=== PATIENT | female | born 1985 | race African-American/Black ===

== ENCOUNTER 2023-01-01 16:23 | Inpatient (IN) | payer MEDICAID ==
[~2023-01-01] VITALS: Ht 162.6 cm; Wt 59.9 kg
[2023-01-01 16:23] VITALS: BP_SYST 163
[2023-01-01] MEDS ORDERED: levETIRAcetam 1,000 MG in NS 90 ML IV ONE (16:30)
[2023-01-01 16:46] LABS: BASOPHILS # (AUTO) 0.1 K/uL (0.0-0.2); BASOPHILS % (AUTO) 1.1 % (0.0-2.0); EOSINOPHILS # (AUTO) 0.2 K/uL (0.0-0.4); EOSINOPHILS % (AUTO) 2.8 % (0.0-4.0); HEMATOCRIT 33.2 % (36-48); HEMOGLOBIN 10.7 g/dL (12.0-16.0); LYMPHOCYTES # (AUTO) 2.1 K/uL (1.0-5.5); LYMPHOCYTES % (AUTO) 32.8 % (20.5-51.5); MEAN CORPUSCULAR HEMOGLOBIN 26 pg (27-31); MEAN CORPUSCULAR HGB CONC 32 % (32-36); MEAN CORPUSCULAR VOLUME 80 fL (79.0-98.0); MONOCYTES # (AUTO) 0.4 K/uL (0.0-1.0); MONOCYTES % (AUTO) 6.5 % (1.7-9.3); NEUTROPHILS # (AUTO) 3.6 K/uL (1.8-7.7); NEUTROPHILS % (AUTO) 56.8 % (40.0-70.0); PLATELET COUNT (AUTO) 213 K/uL (130-430); RED BLOOD CELL COUNT(AUTO) 4.16 MIL/uL (4.2-6.2); RED CELL DISTRIBUTION WIDTH 13.8 % (9.0-15.0); WHITE BLOOD COUNT (AUTO) 6.3 K/uL (4.8-10.8)
[2023-01-01 16:55] LABS: CALCIUM 7.9 mg/dL (8.4-11.0); CREATININE 0.64 mg/dL (0.55-1.30)
[2023-01-01 16:59] LABS: ALBUMIN 3.4 g/dL (3.4-4.8); TOTAL BILIRUBIN 0.2 mg/dL (0.0-1.0)
[2023-01-01 17:24] LABS: BARBITURATE, URINE NEGATIVE (NEG <=200); BENZODIAZEPINE, URINE NEGATIVE (NEG <=150); CANNABINOID, URINE NEGATIVE (NEG <=50); COCAINE, URINE NEGATIVE (NEG <=150); METHAMPHETAMINES SCREEN,URINE NEGATIVE (NEG <=500); OPIATE, URINE NEGATIVE (NEG <=100); PHENCYCLIDINE SCREEN,URINE NEGATIVE (NEG <=25); UR TRICYCLIC ANTIDEPRESSANTS NEGATIVE (NEG <=300); URINE AMPHETAMINE NEGATIVE (NEG <=500); URINE METHADONE NEGATIVE (NEG <=200); URINE OXYCODONE SCREEN NEGATIVE (NEG <=100); URINE PROPOXYPHENE SCREEN NEGATIVE (NEG <=300)
[2023-01-01] MEDS ORDERED: LOSA50TA3 PO (18:38)
[2023-01-01] MEDS: D5/0.45 NS 1,000 ML IV SCH (18:46)
[2023-01-01] MEDS ORDERED: LORazepam 2 MG/ML VIAL ONE (19:12)
[2023-01-01] MEDS ORDERED: LORazepam 2 MG/ML VIAL IVP ONE ×2 (19:15→19:45)
[2023-01-01] MEDS ORDERED: levETIRAcetam 3,000 MG in NS 100 ML IV ONE (19:45)
[2023-01-01 21:00] VITALS: BP_SYST 161
[2023-01-01 22:00] VITALS: BP_SYST 179
[2023-01-01 23:00] VITALS: BP_SYST 169
[2023-01-02] VITALS (24 sets, daily range): BP systolic 130–180
[2023-01-02] MEDS ORDERED: levETIRAcetam 500 MG in NS 100 ML IV SCH (04:00)
[2023-01-02 05:25] LABS: BASOPHILS % (AUTO) 0.3 % (0.0-2.0); EOSINOPHILS % (AUTO) 0.2 % (0.0-4.0); HEMATOCRIT 33.7 % (36-48); LYMPHOCYTES % (AUTO) 9.2 % (20.5-51.5); MEAN CORPUSCULAR HEMOGLOBIN 26 pg (27-31); MEAN CORPUSCULAR HGB CONC 33 % (32-36); MEAN CORPUSCULAR VOLUME 78 fL (79.0-98.0); MONOCYTES # (AUTO) 0.6 K/uL (0.0-1.0); MONOCYTES % (AUTO) 5.2 % (1.7-9.3); NEUTROPHILS % (AUTO) 85.1 % (40.0-70.0); PLATELET COUNT (AUTO) 220 K/uL (130-430); RED CELL DISTRIBUTION WIDTH 13.5 % (9.0-15.0); WHITE BLOOD COUNT (AUTO) 10.5 K/uL (4.8-10.8)
[2023-01-02 05:46] LABS: CALCIUM 7.3 mg/dL (8.4-11.0); CREATININE 0.54 mg/dL (0.55-1.30)
[2023-01-02] MEDS: D5/0.45 NS 1,000 ML IV SCH (08:28)
[2023-01-02] MEDS ORDERED: levETIRAcetam 500 MG IV PREMIX 100 ML IV SCH (09:00)
[2023-01-02] MEDS ORDERED: LORazepam 2 MG/ML VIAL IVP PRN (10:15)
[2023-01-02] MEDS ORDERED: hydrALAZINE HCL 20 MG/ML VIAL IVP PRN (12:15)
[2023-01-02] MEDS ORDERED: LOSARTAN POTASSIUM 50 MG TABLET (COZAAR) PO ONE (12:45)
[2023-01-02] MEDS ORDERED: ACETAMINOPHEN 500 MG TABLET PO PRN (17:00)
[2023-01-02] MEDS ORDERED: BACLOFEN 10 MG TABLET PO ONE (17:45)
[2023-01-02] MEDS ORDERED: KCL 20 mEq in NS 1000 mL 1,000 ML IV ONE (18:46)
[2023-01-02] MEDS: KCL 20 mEq in NS 1000 mL 1,000 ML IV SCH (18:48)
[2023-01-02] MEDS: BACLOFEN 10 MG TABLET PO SCH (21:11)
[2023-01-02] MEDS: guaiFENesin ER 600 MG TAB PO SCH (21:11)
[2023-01-02] MEDS: levETIRAcetam 1,000 MG in NS 100 ML IV SCH (21:11)
[2023-01-03] VITALS (21 sets, daily range): BP systolic 134–169
[2023-01-03] MEDS: KCL 20 mEq in NS 1000 mL 1,000 ML IV SCH (04:53)
[2023-01-03 05:47] LABS: BASOPHILS % (AUTO) 0.6 % (0.0-2.0); EOSINOPHILS # (AUTO) 0.1 K/uL (0.0-0.4); EOSINOPHILS % (AUTO) 1.5 % (0.0-4.0); HEMATOCRIT 34.6 % (36-48); HEMOGLOBIN 11.4 g/dL (12.0-16.0); LYMPHOCYTES # (AUTO) 1.1 K/uL (1.0-5.5); LYMPHOCYTES % (AUTO) 17.2 % (20.5-51.5); MEAN CORPUSCULAR HEMOGLOBIN 26 pg (27-31); MEAN CORPUSCULAR HGB CONC 33 % (32-36); MEAN CORPUSCULAR VOLUME 79 fL (79.0-98.0); MONOCYTES # (AUTO) 0.6 K/uL (0.0-1.0); MONOCYTES % (AUTO) 9.6 % (1.7-9.3); NEUTROPHILS # (AUTO) 4.6 K/uL (1.8-7.7); NEUTROPHILS % (AUTO) 71.1 % (40.0-70.0); PLATELET COUNT (AUTO) 228 K/uL (130-430); RED BLOOD CELL COUNT(AUTO) 4.41 MIL/uL (4.2-6.2); RED CELL DISTRIBUTION WIDTH 13.7 % (9.0-15.0); WHITE BLOOD COUNT (AUTO) 6.5 K/uL (4.8-10.8)
[2023-01-03 06:38] LABS: ALBUMIN 2.9 g/dL (3.4-4.8); CALCIUM 8.1 mg/dL (8.4-11.0); CREATININE 0.54 mg/dL (0.55-1.30); TOTAL BILIRUBIN 0.4 mg/dL (0.0-1.0)
[2023-01-03] MEDS ORDERED: POTASSIUM CHLORIDE 20 MEQ TAB.PRT.SR PO ONE (09:45)
[2023-01-03] MEDS: levETIRAcetam 1,000 MG in NS 100 ML IV SCH ×2 (10:14→22:44)
[2023-01-03] MEDS: BACLOFEN 10 MG TABLET PO SCH ×3 (10:15→22:44)
[2023-01-03] MEDS: LOSARTAN POTASSIUM 50 MG TABLET (COZAAR) PO SCH (10:15)
[2023-01-03] MEDS: guaiFENesin ER 600 MG TAB PO SCH ×2 (10:26→22:44)
[2023-01-03] MEDS ORDERED: QUEtiapine FUMARATE 25 MG TABLET PO ONE (11:00)
[2023-01-03] MEDS ORDERED: LOSARTAN POTASSIUM 50 MG TABLET (COZAAR) PO ONE (17:00)
[2023-01-04 00:07] VITALS: BP_SYST 137
[2023-01-04 06:31] LABS: BASOPHILS # (AUTO) 0.1 K/uL (0.0-0.2); BASOPHILS % (AUTO) 0.6 % (0.0-2.0); EOSINOPHILS # (AUTO) 0.2 K/uL (0.0-0.4); EOSINOPHILS % (AUTO) 2.5 % (0.0-4.0); HEMATOCRIT 35.4 % (36-48); HEMOGLOBIN 11.5 g/dL (12.0-16.0); LYMPHOCYTES # (AUTO) 1.2 K/uL (1.0-5.5); LYMPHOCYTES % (AUTO) 14.1 % (20.5-51.5); MEAN CORPUSCULAR HEMOGLOBIN 26 pg (27-31); MEAN CORPUSCULAR HGB CONC 33 % (32-36); MEAN CORPUSCULAR VOLUME 79 fL (79.0-98.0); MONOCYTES # (AUTO) 0.8 K/uL (0.0-1.0); MONOCYTES % (AUTO) 9.1 % (1.7-9.3); NEUTROPHILS # (AUTO) 6.1 K/uL (1.8-7.7); NEUTROPHILS % (AUTO) 73.7 % (40.0-70.0); PLATELET COUNT (AUTO) 222 K/uL (130-430); RED BLOOD CELL COUNT(AUTO) 4.48 MIL/uL (4.2-6.2); RED CELL DISTRIBUTION WIDTH 13.2 % (9.0-15.0); WHITE BLOOD COUNT (AUTO) 8.3 K/uL (4.8-10.8)
[2023-01-04 06:58] LABS: ALBUMIN 2.9 g/dL (3.4-4.8); CALCIUM 8.2 mg/dL (8.4-11.0); CREATININE 0.6 mg/dL (0.55-1.30); TOTAL BILIRUBIN 0.4 mg/dL (0.0-1.0)
[2023-01-04 08:00] VITALS: BP_SYST 145
[2023-01-04] MEDS ORDERED: QUEtiapine FUMARATE 25 MG TABLET PO SCH (09:00)
[2023-01-04] MEDS: guaiFENesin ER 600 MG TAB PO SCH (09:07)
[2023-01-04] MEDS: BACLOFEN 10 MG TABLET PO SCH ×2 (09:08→15:00)
[2023-01-04] MEDS: LOSARTAN POTASSIUM 50 MG TABLET (COZAAR) PO SCH (09:08)
[2023-01-04] MEDS: levETIRAcetam 1,000 MG in NS 100 ML IV SCH (10:06)
[2023-01-04 11:27] VITALS: BP_SYST 135
[2023-01-04] MEDS ORDERED: METH4TAB3 PO (15:31)
[2023-01-04] MEDS ORDERED: SER25 PO (15:31)
[2023-01-04] MEDS ORDERED: LEVE1000 PO (15:32)
[2023-01-04] MEDS ORDERED: PANT20TA2 PO (15:33)
[2023-01-04 15:50] VITALS: BP_SYST 123
== END 2023-01-04 17:40 | disposition home or self-care (01) | DRG 53 ==
LOC: SED 16:23 → STU 18:09 → SIC 20:52 → STU 01-03 18:46 → SMU 01-04 11:05
PROVIDERS: ADMIT Specialist; ATTEND Specialist
PROC: 4A00X4Z Measurement of Central Nervous Electrical Activity, External Approach (ICD-10-PCS; principal; 2023-01-02)
DX: G40.401 Other generalized epilepsy and epileptic syndromes, not intractable, with status epilepticus (principal); E43 Unspecified severe protein-calorie malnutrition; E87.1 Hypo-osmolality and hyponatremia; E83.51 Hypocalcemia; E87.6 Hypokalemia; I10 Essential (primary) hypertension; Z79.899 Other long term (current) drug therapy; Z68.22 Body mass index [BMI] 22.0-22.9, adult
CPT/HCPCS: 36415; 70450-TC; 71045; 76376; 76802; 80048; 80053; 80307; 82550; 83605; 84702; 84703; 85025; 87081; 95816; 96365; 96375; 97116-GP; 97530-GP; 99291; G0378; J0360; J1953; J2060; J3480

== ENCOUNTER 2023-03-06 19:31 | Inpatient (IN) | payer MEDICAID ==
[~2023-03-06] VITALS: Ht 175.3 cm; Wt 65.5 kg
[~2023-03-06 19:31] MED LIST: LEVE1000 PO; LOSA50TA3 PO; METH4TAB3 PO; PANT20TA2 PO; SER25 PO
[2023-03-06 19:39] VITALS: BP_SYST 155; PULSE 103; RESP 16; TEMP 97.8; O2SAT 100
[2023-03-06] MEDS ORDERED: NACL 0.9% 1,000 ML IV ONE (19:45)
[2023-03-06] MEDS ORDERED: ONDANSETRON HCL 4 MG/2 ML VIAL IVP ONE ×2 (19:45→20:45)
[2023-03-06] MEDS ORDERED: levETIRAcetam 500 MG IV PREMIX 100 ML IV ONE ×3 (19:45→21:00)
[2023-03-06 20:08] LABS: BASOPHILS # (AUTO) 0.1 K/uL (0.0-0.2); BASOPHILS % (AUTO) 1.4 % (0.0-2.0); EOSINOPHILS # (AUTO) 0.1 K/uL (0.0-0.4); HEMATOCRIT 34.5 % (36-48); LYMPHOCYTES % (AUTO) 31.2 % (20.5-51.5); MEAN CORPUSCULAR HEMOGLOBIN 25 pg (27-31); MEAN CORPUSCULAR HGB CONC 32 % (32-36); MEAN CORPUSCULAR VOLUME 80 fL (79.0-98.0); MONOCYTES # (AUTO) 0.6 K/uL (0.0-1.0); MONOCYTES % (AUTO) 8.8 % (1.7-9.3); NEUTROPHILS # (AUTO) 3.7 K/uL (1.8-7.7); NEUTROPHILS % (AUTO) 56.6 % (40.0-70.0); PLATELET COUNT (AUTO) 261 K/uL (130-430); RED BLOOD CELL COUNT(AUTO) 4.33 MIL/uL (4.2-6.2); RED CELL DISTRIBUTION WIDTH 14.4 % (9.0-15.0); WHITE BLOOD COUNT (AUTO) 6.6 K/uL (4.8-10.8)
[2023-03-06 20:26] LABS: ANION GAP 4 (5-15); CALCIUM 8.1 mg/dL (8.4-11.0); CARBON DIOXIDE 30 mmol/L (23-29); CHLORIDE 103 mmol/L (98-107); CREATININE 0.75 mg/dL (0.55-1.30); GFR AFRICAN AMERICAN 111 mL/min (>90); GLUCOSE 107 mg/dL (74-106); POTASSIUM 3.4 mmol/L (3.5-5.1); SODIUM SERUM 137 mmol/L (136-145); UREA NITROGEN, BLOOD 13 mg/dL (8-21)
[2023-03-06 20:27] LABS: GFR NON AFRICAN-AMERICAN 92 mL/min (>90)
[2023-03-06 20:33] LABS: ALBUMIN 3.3 g/dL (3.4-4.8); ASPARTATE AMINOTRANSFERASE 11 U/L (10-37); TOTAL BILIRUBIN 0.2 mg/dL (0.0-1.0); TOTAL PROTEIN, SERUM 7.2 g/dL (6.4-8.3)
[2023-03-06 20:42] LABS: ALANINE AMINOTRANSFERASE 7 U/L (12-78)
[2023-03-06] MEDS ORDERED: LORazepam 2 MG/ML VIAL IVP ONE ×2 (20:45→21:15)
[2023-03-06] MEDS ORDERED: LABETALOL HCL 20 MG/4 ML CARTRIDGE IVP ONE (21:00)
[2023-03-06] MEDS ORDERED: LEVE1000 PO (21:56)
[2023-03-06] MEDS ORDERED: LOSA50TA3 PO (21:56)
[2023-03-06] MEDS ORDERED: LORazepam 1 MG TABLET PO PRN (22:00)
[2023-03-06] MEDS: D5/0.45 NS 1,000 ML IV SCH (22:14)
[2023-03-06] MEDS: LORazepam 2 MG/ML VIAL IVP PRN (23:32)
[2023-03-07] VITALS (8 sets, daily range): BP systolic 143–158; PULSE 71–102; RESP 15–20; TEMP 97–98.8; O2SAT 97–100
[2023-03-07] MEDS: LORazepam 2 MG/ML VIAL IVP PRN (04:01)
[2023-03-07] MEDS: D5/0.45 NS 1,000 ML IV SCH ×2 (12:19→19:28)
[2023-03-07] MEDS ORDERED: IPRATROPIUM BROM 0.5 MG/2.5 ML VIAL.NEB (ATROVENT) INH PRN (13:30)
[2023-03-07] MEDS ORDERED: levETIRAcetam 1,000 MG IV BAG 100 ML IV ONE (13:30)
[2023-03-07] MEDS ORDERED: ONDANSETRON HCL 4 MG/2 ML VIAL IVP PRN (13:30)
[2023-03-07] MEDS ORDERED: ALBUTEROL SULFATE 0.083% 2.5 MG/3 ML VIAL.NEB INH PRN (13:30)
[2023-03-07] MEDS ORDERED: LABETALOL 100 MG/ 20ML VIAL IVP PRN (15:00)
[2023-03-08 00:06] VITALS: BP_SYST 145; PULSE 76; RESP 18; TEMP 96.9; O2SAT 100
[2023-03-08] MEDS: levETIRAcetam 1,000 MG IV BAG 100 ML IV SCH ×2 (00:17→11:45)
[2023-03-08] MEDS: D5/0.45 NS 1,000 ML IV SCH ×2 (04:00→14:40)
[2023-03-08 05:25] LABS: BASOPHILS # (AUTO) 0.1 K/uL (0.0-0.2); BASOPHILS % (AUTO) 0.8 % (0.0-2.0); EOSINOPHILS # (AUTO) 0.1 K/uL (0.0-0.4); EOSINOPHILS % (AUTO) 0.7 % (0.0-4.0); HEMATOCRIT 40.2 % (36-48); HEMOGLOBIN 13.1 g/dL (12.0-16.0); LYMPHOCYTES # (AUTO) 0.9 K/uL (1.0-5.5); MEAN CORPUSCULAR HEMOGLOBIN 26 pg (27-31); MEAN CORPUSCULAR HGB CONC 33 % (32-36); MEAN CORPUSCULAR VOLUME 79 fL (79.0-98.0); MONOCYTES # (AUTO) 0.8 K/uL (0.0-1.0); MONOCYTES % (AUTO) 8.5 % (1.7-9.3); NEUTROPHILS # (AUTO) 7.7 K/uL (1.8-7.7); PLATELET COUNT (AUTO) 255 K/uL (130-430); RED BLOOD CELL COUNT(AUTO) 5.11 MIL/uL (4.2-6.2); RED CELL DISTRIBUTION WIDTH 14.3 % (9.0-15.0); WHITE BLOOD COUNT (AUTO) 9.5 K/uL (4.8-10.8)
[2023-03-08 05:59] LABS: ALBUMIN 2.8 g/dL (3.4-4.8); ANION GAP 8 (5-15); ASPARTATE AMINOTRANSFERASE 13 U/L (10-37); CALCIUM 8.3 mg/dL (8.4-11.0); CARBON DIOXIDE 25 mmol/L (23-29); CHLORIDE 102 mmol/L (98-107); CREATININE 0.91 mg/dL (0.55-1.30); GFR AFRICAN AMERICAN 89 mL/min (>90); GLUCOSE 122 mg/dL (74-106); PHOSPHORUS 4.1 mg/dL (2.7-4.5); POTASSIUM 3.7 mmol/L (3.5-5.1); SODIUM SERUM 135 mmol/L (136-145); TOTAL BILIRUBIN 0.5 mg/dL (0.0-1.0); TOTAL PROTEIN, SERUM 6.8 g/dL (6.4-8.3); UREA NITROGEN, BLOOD 10 mg/dL (8-21)
[2023-03-08 06:19] LABS: GFR NON AFRICAN-AMERICAN 74 mL/min (>90)
[2023-03-08 06:20] LABS: ALANINE AMINOTRANSFERASE < 5 U/L (12-78)
[2023-03-08 08:04] VITALS: BP_SYST 161; PULSE 92; RESP 22; O2SAT 99
[2023-03-08] MEDS: LORazepam 2 MG/ML VIAL IVP PRN (09:35)
[2023-03-08 12:50] VITALS: BP_SYST 149; PULSE 112; RESP 16; TEMP 97.9; O2SAT 93
[2023-03-08 16:30] VITALS: BP_SYST 137; PULSE 110; RESP 17; TEMP 98.2; O2SAT 93
[2023-03-08 20:00] VITALS: BP_SYST 118; PULSE 99; RESP 18; TEMP 97.4; O2SAT 99
[2023-03-09] MEDS: levETIRAcetam 1,000 MG IV BAG 100 ML IV SCH ×2 (00:37→12:04)
[2023-03-09 00:38] VITALS: BP_SYST 131; PULSE 98; RESP 20; TEMP 97.6; O2SAT 99
[2023-03-09] MEDS: D5/0.45 NS 1,000 ML IV SCH ×2 (00:38→10:00)
[2023-03-09 04:00] VITALS: BP_SYST 137; PULSE 92; RESP 18; TEMP 96.7; O2SAT 100
[2023-03-09 08:00] VITALS: BP_SYST 147; PULSE 102; RESP 16; TEMP 98.8; O2SAT 100
[2023-03-09 12:25] VITALS: O2SAT 100
[2023-03-09 12:55] VITALS: BP_SYST 137; PULSE 101; RESP 16; TEMP 97.8; O2SAT 99
[2023-03-09 13:15] VITALS: BP_SYST 137; PULSE 101; RESP 16; TEMP 97.8; O2SAT 99
== END 2023-03-09 14:15 | disposition home health service (06) | DRG 53 ==
LOC: SED 19:31 → STU 21:47 → MERGE 21:47 → STU 23:03
PROVIDERS: ADMIT Specialist; ATTEND Specialist
PROC: 4A10X4Z Monitoring of Central Nervous Electrical Activity, External Approach (ICD-10-PCS; principal; 2023-03-08)
DX: G40.909 Epilepsy, unspecified, not intractable, without status epilepticus (principal); E44.1 Mild protein-calorie malnutrition; E83.51 Hypocalcemia; E88.09 Other disorders of plasma-protein metabolism, not elsewhere classified; T42.6X6A Underdosing of other antiepileptic and sedative-hypnotic drugs, initial encounter; E87.6 Hypokalemia; D64.9 Anemia, unspecified; G71.00 Muscular dystrophy, unspecified; I10 Essential (primary) hypertension; Y92.89 Other specified places as the place of occurrence of the external cause; Z68.21 Body mass index [BMI] 21.0-21.9, adult
CPT/HCPCS: 36415; 71045; 74018; 80053; 83735; 83880; 84100; 84484; 84702; 85025; 92610-GN; 93005; 94760; 95816; 96365; 96375; 97116-GP; 97530-GP; 99285; G0378; J1953; J2060; J2405; J3490; J7030